=== PATIENT | male | born 1940 ===

== ENCOUNTER 2018-03-09 00:31 | Day surgery (SDC) | payer MEDICARE, OTHER ==
[2015-02-11 16:52] VITALS: Ht 177.8 cm; Wt 90.3 kg
[~2018-03-09] VITALS: Ht 177.8 cm; Wt 90.3 kg
[~2018-03-09 00:31] MED LIST: ASPI-715 PO; ATOR40TA24 PO; DILT120C22 PO; FINA5TAB67 PO; GEM600 PO; GLUC100026 PO; KDUR PO; LEVO75TA68 PO; LOSA100T62 PO; METO-259 PO; OMEG300C PO; OMEP-153 PO; OXYC-865 PO; PARO30TA PO; PER PO; POTA20PA10 PO; SIMVASTATIN PO; TAMS0.4C70 PO; WARF5TAB23 PO; [UNRECOGNIZED DRUG - OTHER] PO
[2018-03-09] MEDS ORDERED: LIDOCAINE MPF 1% 5 ML VIAL ONE (08:42)
[2018-03-09] MEDS ORDERED: PROPOFOL EMUL(*) 10MG/ML 20 ML 40 ML ONE (08:42)
[2018-03-09 09:56] VITALS: BP 150/95
[2018-03-09 10:02] LABS: INR 1.07
[2018-03-09] MEDS ORDERED: NORMOSOL R SOLN(*) 1000 ML BAG 1,000 ML IV PRN (11:30)
[2018-03-09] MEDS ORDERED: LIDOCAINE/SOD BICARB 8.4% SYR ID ONE (11:30)
[2018-03-09 11:58] VITALS: BP 120/71
[2018-03-09 12:13] VITALS: BP 119/71
[2018-03-09 12:28] VITALS: BP 117/80
[2018-03-09 12:29] VITALS: BP 114/69
== END 2018-03-09 12:45 | disposition home or self-care (01) ==
LOC: OR 00:31
PROVIDERS: ATTEND Internal Medicine Gastroenterology
DX: K20.9 Esophagitis, unspecified (principal); K29.70 Gastritis, unspecified, without bleeding; K44.9 Diaphragmatic hernia without obstruction or gangrene
CPT/HCPCS: 36415; 43248; 85610; 88305; 88313; 88344; J2001; J2704

== ENCOUNTER → 2019-03-28 | Outpatient (REF) | payer MEDICARE, OTHER ==
[2015-02-11 16:52] VITALS: BMI 30.9
[~2019-03-28] MED LIST changes: -POTA20PA10 PO; +POTA20PA31 PO
[2019-03-28 10:51] LABS: PLATELET COUNT, AUTOMATED 178 K/uL (150-450)
== END ==
PROVIDERS: ATTEND Nurse Practitioner Family
DX: R06.02 Shortness of breath (principal)
CPT/HCPCS: 82040; 82247; 82310; 82374; 82435; 82565; 82947; 84075; 84132; 84155; 84295; 84450; 84460; 84484; 84520; 85025

== ENCOUNTER 2019-05-23 00:09 | Day surgery (SDC) | payer MEDICARE, OTHER ==
[2015-02-11 16:52] VITALS: Ht 177.8 cm; Wt 90.7 kg
[~2019-05-23] VITALS: Ht 177.8 cm; Wt 90.7 kg
[2019-05-23] MEDS: NORMOSOL R SOLN(*) 1000 ML BAG 1,000 ML IV PRN ×2 (12:22→15:16)
[2019-05-23] MEDS ORDERED: LIDOCAINE/SOD BICARB 8.4% SYR ID ONE (12:40)
[2019-05-23] MEDS ORDERED: PROPOFOL EMUL(*) 10MG/ML 20 ML 40 ML ONE (13:30)
[2019-05-23] MEDS ORDERED: KETAMINE HCL-NS 50 MG/5 ML SYR ONE (13:31)
[2019-05-23 13:36] VITALS: BP 157/96
[2019-05-23 13:36] LABS: INR 1.17
[2019-05-23] MEDS ORDERED: PROPOFOL EMUL(*) 10MG/ML 20 ML 20 ML ONE (13:59)
[2019-05-23 14:44] VITALS: BP 127/73
[2019-05-23 15:09] VITALS: BP 142/75
[2019-05-23 15:30] VITALS: BP 164/92
[2019-05-23 15:41] VITALS: BP 141/95
[2019-05-23 15:42] VITALS: BP 129/89
== END 2019-05-23 15:55 | disposition home or self-care (01) ==
LOC: OR 00:09
PROVIDERS: ATTEND Internal Medicine Gastroenterology
DX: K22.70 Barrett's esophagus without dysplasia (principal); K44.9 Diaphragmatic hernia without obstruction or gangrene; K29.70 Gastritis, unspecified, without bleeding; K64.9 Unspecified hemorrhoids; K57.30 Diverticulosis of large intestine without perforation or abscess without bleeding; D12.5 Benign neoplasm of sigmoid colon; R13.10 Dysphagia, unspecified; R68.81 Early satiety
CPT/HCPCS: 00813; 36415; 43239; 43249; 45380; 85610; 88305; 88313; 88342; J2704; J3490